=== PATIENT | female | born 1960 ===

== ENCOUNTER 2024-12-22 13:54 | Outpatient (AMB) | payer OTHER, SELFPAY ==
--- NOTE | 2024-12-22 14:04 | MHC.OFFVIS ---
Vital Signs 12/22/24 14:14 Height 5 ft 1 in Weight 160 lb BMI 30.2 BP 142/70 H Blood Pressure Location Rt brachial Position Sitting Respiration 16 Pulse 62 Pulse Oximetry (%) 96 Intake Visit Reasons: ENP: Tremor of unknown origin Nca Certified Concierge Required: Yes Nca Certified Concierge Services: Nca Certified Concierge Present Nca Certified Concierge Name: Hero ID # [id number] Information Interpreted: non-clinical & clinical Allergies No Known Allergies Allergy (Verified 12/22/24 14:04) HPI Comments Details: This is a 64-year-old female patient presented to the clinic for generalized shaking and tremors. She was seen in the emergency department at [facility] on 11/27/2024 and at that time had reported that this was going on for approximately 3 weeks. There was some question whether or not her psychiatric medications has been contributing however she had reported no changes to her regimen. According to her medication list, she is taking Invega 3 mg every morning, quetiapine 50 mg daily, and mirtazapine 50 mg at bedtime. Her primary care had also mentioned a possible new onset Parkinson's disease. She is here today for an evaluation of her symptoms. According to the patient today, she has been experiencing a tremor that started about 1 month ago. She has noticed that her whole body, hands, and head have been shaking. She especially has noticed that her left side has been more effected and seemingly it feels worse throughout the day but also significant immediately upon awakening in the morning. She has also noticed that she has some difficulty with her balance and she uses a cane. She denies falls. The imbalance has been going on for perhaps years. She denies any other known gait changes. She does have some intermittent constipation that has been going on for years. Sleep: She does have some intermittent insomnia. Denies acting out of her dreams. Sense of smell: Denies any changes to her sense of smell or loss of sense of smell. She notes that her mother had a history of tremor that she can recall. She is not sure if her mother had any formal tremor diagnosis. She does not know of any Parkinson diagnosis in the family. She was exposed in the past in [place] to [place] her [place]. Because of her tremor, she has had difficulty with some of her day-to-day activities and holding onto objects. Social/backround: Home- Lives home with her family Caffeine- 4 cups of coffee daily Alcohol- None Tobacco- Vapes e-cigars Substance use- None Prior workup: None PFSH Medical History (Updated 12/22/24 @ 14:53 by Aliyah Pepper CNP) COPD (chronic obstructive pulmonary disease) Asthma Varicose vein of leg Vertigo Diabetes mellitus Depression with anxiety Insomnia HLD (hyperlipidemia) Hypertension Tremor Surgical History (Updated 12/22/24 @ 14:08 by Donnell Hardwick CMA) H/O lumpectomy H/O section Hx of breast reduction, elective Social History (Updated 12/22/24 @ 14:10 by Donnell Hardwick CMA) Household Members: Family and Children Household Members Other:: Grandson Alcohol intake: never Patient Tobacco Use Status: Former Tobacco user service: No Current occupational status: retired Sexual orientation: Straight/Heterosexual Gender identity: Female Review of Systems Const All systems reviewed & are unremarkable except as noted in HPI and below Neuro Denies Abnormal speech present Physical Exam Const Orientation/consciousness: oriented to person, oriented to place and oriented to time Neuro General: oriented to person, oriented to place and oriented to time Cranial nerves: Yes CN's II-XII intact bilaterally Cognition (Neuro): normal cognition Speech: No Abnormal speech present Gait exam (Neuro): Antalgic gait present, Staggering gait present (Slightly staggering but able to maintain balance with a cane) and Assistive device used Motor exam (neuro): Normal motor muscle tone present throughout, Abnormal motor strength present (4/5 throughout ) and Tremors during motor activity present upper extremity resting tremor (L>R rest tremor. Tremor also present with finger to nose testing.) Deep tendon reflexes (DTR's): Right triceps reflex intensity grade: 1+, Left triceps reflex intensity grade: 1+, Rt Biceps (C5, C6): 1+, Left biceps reflex intensity grade: 1+, Right brachioradialis reflex intensity grade: 1+, Left brachioradialis reflex intensity grade: 1+, Right patellar reflex intensity grade: 1+, Left patellar reflex intensity grade: 1+, Right ankle reflex intensity grade: 1+ and Left ankle reflex intensity grade: 1+ Coordination: No [id number] test normal (Some increase in tremor with target points ) Romberg Test: Positive Psych Appearance: grossly normal Mental Status: mental status grossly normal Speech and movement: Other speech and movement exam findings present (Psych) (rocking whole body back and fourth. Some intermittent tongue protrusions ) Affect: normal affect Attitude: cooperative Thought process: Normal thought process present Thought content: Normal thought content present Insight: Fair insight present (Psych) Judgement: Fair judgement present (Psych) Assessment & Plan Assessment & Plan (1) Resting tremor: Code(s): G25.2 - Other specified forms of tremor Category: Medical Plan This is a 64-year-old female patient presented to the clinic for generalized shaking and tremors. Physical exam today those display some parkinsonian features including rest tremor worse on the left side. She has a coordinating some movements. Her tone was however normal, her gait was not shuffling, and she did not have any significant degree of masked facies. She does note some difficulty with balance and she does have some difficulty with target points of the mnxcwv-pz-prtd test raising some concern for possible cerebellar involvement. Her balance however has been independent from her new onset of tremor. Because she has a pill rolling rest tremor, and significant exposure to round up in the past, I think would be reasonable to rule out Parkinson's disease versus drug-induced parkinsonism. I think reasonably the next step if the DaTSCAN is negative, would be to reduce some of her psychiatric medications or consider addition of benztropine. She does also have some intermittent tongue protrusions notable on today's exam. I can not fully exclude cerebellar involvement either, we could also consider a noncontrast MRI to evaluate for cerebellar pathology given her reports of imbalance and tremor. -Aamir Scan to evaluate for possible PD versus drug-induced PD -future considerations: Reduction of psychiatric medication or addition of benztropine if DaTSCAN is negative. MRI of the brain without contrast to rule out cerebellar pathology. -Follow-up in 2 months to review Aamir scan Orders: Orders DaTscan Today G25.2 - Other specified forms of tremor Coding Level of Care Code New Pt Level 4 (16756) Diagnoses Resting tremor G25.2
[2024-12-22 14:14] VITALS: BP 142/70; PULSE 62; RESP 16; O2SAT 96; BMI 30.2
--- OUTSIDE RECORDS SUMMARY | 2024-12-22 15:37 | XMS_ITS | Clinical Summary ---
Author Organization [facility] Address [address] [place] [address] Phone Care Team Providers Care Supervisor Case Loading Name Role Phone Delphine Daly MD Primary Care Provider [phone] Allergies No known active allergies Encounters Date Type Department Care Team Description 11/27/2024 1:14 PM EDT - 11/27/2024 1:54 PM EDT Emergency [facility] Emergency [address] [place] [address] Tiago Acuna MD Tremor of unknown origin (Primary Dx) Discharge Disposition: Home or Self Care from Last 3 Months Social History Tobacco Use Types Packs/Day Years Used Date Smoking Tobacco: Every Day Smokeless Tobacco: Current Alcohol Use Standard Drinks/Week Comments No 0 (1 standard drink = 0.6 oz pur e alcohol) Comments Unknown Sex and Gender Information Value Date Recorded Sex Assigned at Not on file Legal Sex Female 2:57 AM EST Gender Identity Not on file Sexual Orientation Not on file Obstetrics History Last Filed Vital Signs Vital Sign Reading Time Taken Comments Blood Pressure 159/137 11/27/2024 1:03 PM EDT Pulse 67 11/27/2024 1:03 PM EDT Temperature 36.7 C (98 F) 11/27/2024 1:03 PM EDT Respiratory Rate 16 11/27/2024 1:03 PM EDT Oxygen Saturation 97% 11/27/2024 1:03 PM EDT Inhaled Oxygen Concentration - - Weight 70.8 kg (156 lb) 11/27/2024 1:03 PM EDT Height 154.9 cm (5' 1 ) 11/27/2024 1:03 PM EDT Body Mass Index 29.48 11/27/2024 1:03 PM EDT Plan of Treatment Health Maintenance Due Date Last Done Comments Diabetes: Annual GFR (Glomerular Filtration Rate) 1958 Diabetes: Annual Foot Exam 1968 Diabetes: Annual Retina Eye Exam 1968 Cholesterol Screening (Lipid Panel) 02/26/2022 Colorectal Cancer Screening: Colonoscopy 02/26/2022 Hepatitis C Screening 02/26/2022 Medicare Annual Wellness Visit 02/26/2022 Osteoporosis Screening (Bone Density Screening) 02/26/2022 Social Influencers of Health Screening 02/26/2022 Hypertension/CHF/CAD Annual BMP Blood Test 03/05/2022 Falls Risk Assessment 11/16/2023 Depression Screening 03/26/2024 Influenza Vaccine (#1) 2024 , 11/28/2023, 12/14/2022, Additional history exists Diabetes: Annual Urine Albumin-Creatinine Ratio (uACR) 11/27/2024 Diabetes: Blood Sugar Control Test (HGBA1C) 11/27/2024 Breast Cancer Screening 01/16/2026 01/17/20 24, 01/15/2023, 01/10/2022, Additional history exists DTaP,Tdap,and Td Vaccines (2 - Td or Tdap) 03/07/2029 03/07/2019 MMR Vaccines Aged Out 02/02/2015 No longer eligi ble based on patient's age to complete this topic Zoster Vaccines Completed 07/26/2018, 03/21/2018 RSV Immunization Adult Patients Completed 11/27/2023 Pneumococcal Vaccine: 50+ Years Completed 01/31/2024, 08/10/2020, 02/28/2018, Additional history exists COVID-19 Vaccine Completed 02/07/2024, 06/2023, 03/15/2023, Additional history exists HIB Vaccines Aged Out No longer eligi ble based on patient's age to complete this topic HPV Vaccines Aged Out No longer eligi ble based on patient's age to complete this topic Hepatitis A Vaccines Aged Out No long er eligible based on patient's age to complete this topic Hepatitis B Vaccines Aged Out No long er eligible based on patient's age to complete this topic IPV Vaccines Aged Out No longer eligi ble based on patient's age to complete this topic Meningococcal ACWY Vaccine Aged Out N o longer eligible based on patient's age to complete this topic Meningococcal B Vaccine Aged Out No l onger eligible based on patient's age to complete this topic RSV Immunization Patients Under 20 months Aged Out No longer eligible based on patient's age to complete this topic Varicella Vaccines Aged Out No longer eligible based on patient's age to complete this topic Procedures Procedure Name Priority Date/Time Associated Diagnosis Comments [facility] SCREEN[facility] Routine 01/17/2024 3:50 PM EDT Encounter for screening mammogram for malignant neoplasm of breast from Last 3 Months or Most Recently Relevant to Health Maintenance Results * [facility] SCRE[facility] (01/17/2024 3:50 PM EDT) Anatomical Region Laterality Modality Mammography 01/17/2024 1:26 PM EDT Narrative 01/17/2024 3:50 PM EDT [facility] Diagnostic Imaging Department [address] [place] [address] Patient: CRISTÓBAL GARCÍANACION /Age/Sex: 1960 - 63 - F Unit#: [id number] Location/Status: [facility] CLI Mnemonic/Ordering [facility] Ordering Physician: SERVANDO ARECHIGA MD Kianna Screening Digital - 01/17/24 - 1356 Report Status:Signed EXAM: [facility] Screening Digital EXAM DATE AND TIME: 01/17/2024 1:57 PM HISTORY: Annual screening COMPARISON: 01/15/2023, 01/11/2020, 2, 04/30/2020, 03/10/2019 and 03/07/2018 TECHNIQUE: Bilateral digital breast tomosynthesis was performed in the CC and MLO projections. Computer aided detection with [employer] 7.2-H and Snip[employer] 3D 3.1 was employed. TISSUE DENSITY: b. There are scattered areas of fibroglandular density. FINDINGS: No suspicious masses, grouped microcalcifications, or areas of architectural distortion are seen. The skin and vascularity are unremarkable. Stable bilateral reduction mammoplasty changes. IMPRESSION: Stable mammographic appearance of the breasts. No evidence of malignancy is seen. A negative mammogram in the presence of a clinically suspicious palpable abnormality does not preclude the possibility of malignancy or alter the indications for biopsy. BI-RADS: Category 2: Benign RECOMMENDATION(S): 1: Routine screening mammogram BILATERAL in 1 year. Dictating Physician: LORENZO GARCIA MD Electronically Signed by: LORENZO GARCIA MD Dic Date/Time: 01/17/24 1546 Sign date/Time: 01/17/24 1550 Procedure Note Lorenzo Garcia MD - 01/26/2024 [facility] Diagnostic Imaging Department [address] [place] [address] [id number] Patient: YEIMI GARCÍA /Age/Sex: 1960 - 63 - F Unit#: [id number] Location/Status: [facility]/REG CLI Mnemonic/Ordering Site: [facility] Ordering Physician: SERVANDO ARECHIGA MD Kianna Screening Digital - 01/17/24 - 1356 Report Status:Signed EXAM: [facility] Screening Digital EXAM DATE AND TIME: 01/17/2024 1:57 PM HISTORY: Annual screening COMPARISON: 01/15/2023, 01/11/2020, 2, 04/30/2020, 03/10/2019 and03/07/2018 TECHNIQUE: Bilateral digital breast tomosynthesis was performed in the CCand MLO projections. Computer aided detection with [employer] 7.2-H and[employer]ip[employer] 3D 3.1 was employed. TISSUE DENSITY: b. There are scattered areas of fibroglandular density. FINDINGS: No suspicious masses, grouped microcalcifications, or areas ofarchitectural distortion are seen. The skin and vascularity are unremarkable. Stable bilateral reduction mammoplasty changes. IMPRESSION: Stable mammographic appearance of the breasts. No evidence of malignancyis seen. A negative mammogram in the presence of a clinically suspicious palpable abnormality does not preclude the possibility of malignancy or alter the indications for biopsy. BI-RADS: Category 2: Benign RECOMMENDATION(S): 1: Routine screening mammogram BILATERAL in 1 year. Dictating Physician: LORENZO GARCIA MD Electronically Signed by: LORENZO GARCIA MD Dic Date/Time: 01/17/24 1546 Sign date/Time: 01/17/24 1550 Servando Arechiga MD IMG BI PROCEDURES Final Resu lt from Last 3 Months or Most Recently Relevant to Health Maintenance Insurance [facility] MEDIC[facility] Member Subscriber Plan / Payer (Ef fective 2024-Present) Name:YEIMI ARCE Relation to Subscriber:Self Name:Yeimi García Payer ID:[id number] Group ID:[id number] Type:Not on file Address: [address] [place] [address] Care Teams Supervisor Case Loading Relationship Specialty Start Date End Date Delphine Daly MD [address] [place] [id number] PCP - General Internal Medicine 11/27/24
--- OUTSIDE RECORDS SUMMARY | 2024-12-22 15:37 | XMS_ITS | Clinical Summary ---
Author Organization [facility] Address [address] [place] [address] Care Team Providers Care Production Editor Name Role Phone Keely Marin DO Primary Care Provider [phone] Allergies No known active allergies Medications Medication Sig Dispensed Refills Start Date End Date Status aspirin EC 81 MG tablet Take 81 mg by mouth daily. 0 Active albuterol (PROVENTIL HFA;VENTOLIN HFA) 108 (90 BASE) MCG/ACT inhaler Inhale 2 puffs into the lungs every 6 (six) hours as needed for wheezing. 0 Active Calcium Citrate-Vitamin D (CALCIUM + D PO) Take by mouth. 0 Acti ve lisinopril (PRINIVIL,ZESTRIL) tablet 10 mg Take 10 mg by mouth daily. 0 Active omeprazole (PRILOSEC) 20 MG capsule Take 20 mg by mouth daily. 0 Active metFORMIN (GLUCOPHAGE) tablet 500 mg Take 500 mg by mouth 2 (two) times a day with meals. 0 Active OLANZapine (ZYPREXA) 10 MG tablet Take 20 mg by mouth every night at bedtime. 0 Active mirtazapine (REMERON) 30 MG tablet Take 30 mg by mouth every night at bedtime. 0 Active montelukast (SINGULAIR) 10 MG tablet Take 10 mg by mouth every night at bedtime. 0 Active Cyanocobalamin (B-12) 1000 MCG TABS Take 1 tablet by mouth daily. 30 tablet 11 08/08/2021 Active Active Problems Problem Noted Date Diagnosed Date Hoarseness of voice 12/24/2019 Gastroesophageal reflux disease 12/24/2019 Absolute anemia 12/24/2019 Epistaxis 01/09/2019 Superficial phlebitis 01/09/2019 Leukocytosis 01/26/2017 Tobacco use 01/26/2017 Simple chronic bronchitis 01/26/2017 Family History Medical History Relation Name Comments Diabetes Mother Cancer Niece bladder Cancer Paternal Aunt stomach Cancer Paternal Uncle prostate Relation Name Status Comments Mother Niece Paternal Aunt Paternal Uncle Social History Tobacco Use Types Packs/Day Years Used Date Smoking Tobacco: Every Day Smokeless Tobacco: Never Alcohol Use Standard Drinks/Week Comments No 0 (1 standard drink = 0.6 oz pur e alcohol) Sex and Gender Information Value Date Recorded Sex Assigned at Not on file Gender Identity Not on file Sexual Orientation Not on file Last Filed Vital Signs Vital Sign Reading Time Taken Comments Blood Pressure 134/36 08/08/2021 1:52 PM EDT Pulse 73 08/08/2021 1:52 PM EDT Temperature 36.8 C (98.2 F) 08/08/2021 1:52 PM EDT Respiratory Rate - - Oxygen Saturation 98% 08/08/2021 1:52 PM EDT Inhaled Oxygen Concentration - - Weight 75.9 kg (167 lb 6.4 oz) 08/08/2021 1:52 P M EDT Height 154.9 cm (5' 1 ) 07/02/2020 2:22 PM EDT Body Mass Index 31.63 07/02/2020 2:22 PM EDT Plan of Treatment Health Maintenance Due Date Last Done Comments Hepatitis C Screening 1960 COVID-19 Vaccine (#1) 05/18/1959 Pneumococcal Vaccine (1 of 2 - PCV) 1964 Depression Screening 1970 BMI Counseling 1976 Preventative Health Evaluation 1976 Tobacco Cessation Counseling 1976 DTap / Tdap / Td (1 - Tdap) 1977 Colon Cancer Screening (Colonoscopy) 11/16/2003 Breast Cancer Screening (Mammogram) 2008 Shingrix-Zoster Vaccine (1 of 2) 2008 Fall Risk Assessment 11/16/2023 Osteoporosis Screening (DEXA Scan) 11/16/2023 Influenza Vaccine (#1) 2024 RSV Adult > 60+ Yrs or Pregn ant (1 - 1-dose 75+ series) 2033 Hepatitis B Vaccines Aged Out No long er eligible based on patient's age to complete this topic RSV Ped < 20 months Aged Out No longe r eligible based on patient's age to complete this topic Care Teams Production Editor Relationship Specialty Start Date End Date Keely Marin DO [address] [address] PCP - General Family Medicine 01/17/17
== END 2024-12-22 14:44 | disposition home or self-care (01) ==
PROVIDERS: PCP Internal Medicine; Visit Provider Nurse Practitioner
DX: G25.2 Other specified forms of tremor (principal)
CPT/HCPCS: 99204

== ENCOUNTER → 2024-12-22 13:54 | Outpatient (BNVA) | payer OTHER, SELFPAY | PROVIDERS: PCP Internal Medicine; Visit Provider Nurse Practitioner | DX: G25.2 Other specified forms of tremor (principal) | CPT/HCPCS: 99202 ==